=== PATIENT | male | born 1965 | race Caucasian/White ===

== ENCOUNTER → 2021-03-10 | Outpatient (CLI) | payer BC ==
[~2021-03-10] MED LIST: DESYREL 50 MG T50 MG PO; MOBIC15 MG PO; NORCO 5-325 TA1 EACH PO; NORVASC 5 MG TAB5 MG PO; PROTONIX40 MG PO; ROPINIROLE HCL4 MG PO; SYNTHROID100 MCG PO; ZESTRIL40 MG PO
== END ==
LOC: KOH-I 16:17
DX: M25.50 Pain in unspecified joint (principal); M54.9 Dorsalgia, unspecified; M47.816 Spondylosis without myelopathy or radiculopathy, lumbar region
CPT/HCPCS: 72110; 73562

== ENCOUNTER → 2021-06-05 | Outpatient (CLI) | payer BC | LOC: KOH-I 14:00 | DX: F17.210 Nicotine dependence, cigarettes, uncomplicated (principal); R91.1 Solitary pulmonary nodule; I25.10 Atherosclerotic heart disease of native coronary artery without angina pectoris | CPT/HCPCS: 71271 ==

== ENCOUNTER → 2021-12-10 | Outpatient (CLI) | payer BC ==
[~2021-12-10] MED LIST changes: +CRESTOR10 MG PO; +LEVOTHYROXINE125 MC1 PO; +LISINOPRIL40 MG PO; +NORVASC5 MG PO; +PROSCAR5 MG PO; +TRAZODONE HCL50 MG PO
[2021-12-10 11:38] LABS: HEMOGLOBIN 15.1 gm/dl (14.0-17.5); RED BLOOD COUNT 4.96 M/UL (4.20-5.50); WHITE BLOOD COUNT 7.4 K/UL (4.5-11.0)
[2021-12-10 11:55] LABS: BUN/CREATININE RATIO 20 (0-10)
== END ==
LOC: OPSV2 12-05 08:00 → EDSTATUS 10:30 → OPSV2 10:30
PROVIDERS: Orthopaedic Surgery
DX: Z01.818 Encounter for other preprocedural examination (principal); M17.11 Unilateral primary osteoarthritis, right knee
CPT/HCPCS: 36415; 80048; 85027; 93005

== ENCOUNTER → 2021-12-18 | Day surgery (SDC) | payer BC ==
[~2021-12-18] VITALS: Ht 182.9 cm; Wt 114.3 kg
[~2021-12-18] MED LIST changes: +ASPIRIN EC81 MG PO; +CYCLOBENZAPRINE10 MG PO; +OXYCODON-ACETA1 EAC1 PO; +ZOFRAN 4 MG TAB4 MG PO
[2021-12-18 08:45] LABS: BUN/CREATININE RATIO 19 (0-10)
== END | disposition home or self-care (01) ==
LOC: EDSTATUS 07:30 → OR 07:30
PROVIDERS: Orthopaedic Surgery
DX: M17.11 Unilateral primary osteoarthritis, right knee (principal); I10 Essential (primary) hypertension; K21.9 Gastro-esophageal reflux disease without esophagitis; G25.81 Restless legs syndrome; G47.30 Sleep apnea, unspecified; Z79.82 Long term (current) use of aspirin; E78.5 Hyperlipidemia, unspecified; Z72.0 Tobacco use; E03.9 Hypothyroidism, unspecified
CPT/HCPCS: 36415; 73560; 80048; 97161; 97165; C1713; C1776; J0690; J1100; J1885; J2001; J2250; J2270; J2370; J2405; J2704; J2795; J3010; J3370; J7120